=== PATIENT | female | born 2000 | race African-American/Black ===

== ENCOUNTER 2024-08-10 13:16 | Emergency (ER) | payer BC, MEDICAID, OTHER ==
[~2024-08-10] VITALS: Ht 167.6 cm; Wt 70.0 kg
[2024-08-10 13:18] VITALS: TEMP 36.7; O2SAT 99
[2024-08-10] MEDS: ACETAMINOPHEN 325MG TABLET PO ONE (14:02)
[2024-08-10] MEDS: TETANUS, DIPHTHERIA, PERTUSSIS VAC/PF 0.5ML (>10YR OLD) IM ONE (14:02)
[2024-08-10] MEDS: BACITRACIN ZINC OINT UDPKT TOP ONE (14:30)
[2024-08-10 15:24] VITALS: BP 114/67; PULSE 91; RESP 16; O2SAT 100
== END 2024-08-10 15:29 | disposition home or self-care (01) ==
LOC: ER 13:16
DX: S40.011A Contusion of right shoulder, initial encounter (principal); S60.414A Abrasion of right ring finger, initial encounter; S90.412A Abrasion, left great toe, initial encounter; S09.90XA Unspecified injury of head, initial encounter; Y04.0XXA Assault by unarmed brawl or fight, initial encounter; Y93.89 Activity, other specified; Y92.89 Other specified places as the place of occurrence of the external cause; Y99.8 Other external cause status
CPT/HCPCS: 73630; 81025; 90471; 90715; 99285